=== PATIENT | male | born 1980 | race Caucasian/White ===

== ENCOUNTER 2022-06-28 07:30 | Day surgery (SDC) | payer BC, SELFPAY ==
[2022-06-28] VITALS (10 sets, daily range): BP systolic 91–118; BP diastolic 51–93; PULSE 46–81; RESP 16–18; TEMP 36.2–36.5; O2SAT 94–98; BMI 27.2
[2022-06-28] MEDS: LACTATED RINGERS 1000 ML 1,000 ML 100 ML IV ×2 (08:00→11:49)
[2022-06-28] MEDS: SODIUM CHLORIDE 0.9 % (FLUSH) 10 ML SYRINGE IVF (08:22)
--- NOTE | 2022-06-28 08:22 | SUR.PREOP ---
Home COVID Test negative. Test taken 06/27 per patient.
--- NOTE | 2022-06-28 09:45 | CRLHL7_ITS ---
For Patients: As a result of the Cures Act, medical imaging exams and procedure reports are released immediately into your electronic medical record. You may view this report before your referring provider. If you have questions, please contact your health care provider. Indication: ORIF Right Ankle Technique: Four fluoroscopic images of the right ankle. Fluoroscopic time 77.6 seconds. IMPRESSION: Fluoroscopic guidance for open reduction internal fixation of the distal fibular fracture. Dictated by Armando Cantu MD @ 06/28/2022 12:35:34 PM (Electronically Signed)
[2022-06-28] MEDS: fentaNYL 100 MCG/2 ML inj IVP (10:34)
[2022-06-28] MEDS: MIDAZOLAM HCL 1 MG/ML inj IVP (10:34)
--- NOTE | 2022-06-28 10:39 | W.PM.NB ---
Nerve Block Nerve Block Time Seen by Provider: 10:35 Date Seen: 06/28/22 Type of block requested by surgeon for post-operative analgesia: popliteal Side: right Time out performed: Yes Verification of patient name: Yes Verification of date of : Yes Site marking: site marked Name of person performing procedure: Ruben Continuous monitoring Was continuous monitoring of O2 sat, B/P, monitoring and evaluation advisor, recorded every 15 minutes?: Yes Procedure Checklist: sterile prep, needles and gloves Ultrasound guided. Images saved: Yes Medications given in 5ml increments after negative aspiration: Ropivicaine %: 0.5 mL: 25 Needle gauge: 22 Patient tolerated procedure well: Yes Additional comments: Needle noted adjacent to nerve Block Charges Block Charge (with Pro Fee): Sciatic Nerve Use of Ultrasound Machine for Block: Yes- US Guidance/pain block
--- NOTE | 2022-06-28 10:40 | W.PM.NB ---
Nerve Block Nerve Block Time Seen by Provider: 10:35 Date Seen: 06/28/22 Type of block requested by surgeon for post-operative analgesia: adductor canal Side: right Time out performed: Yes Verification of patient name: Yes Verification of date of : Yes Site marking: site marked Name of person performing procedure: Ruben Continuous monitoring Was continuous monitoring of O2 sat, B/P, associate professor computer science, recorded every 15 minutes?: Yes Procedure Checklist: sterile prep, needles and gloves Ultrasound guided. Images saved: Yes Medications given in 5ml increments after negative aspiration: Ropivicaine %: 0.5 mL: 20 Needle gauge: 20 Patient tolerated procedure well: Yes Additional comments: Needle noted adjacent to nerve Block Charges Block Charge (with Pro Fee): Femoral Nerve Use of Ultrasound Machine for Block: Yes- US Guidance/pain block
--- NOTE | 2022-06-28 11:37 | W.ANESCHARGE ---
Anesthesia Charges Start Date/Time Anesthesia Start Date: 06/28/22 Anesthesia Start Time: 11:01 Stop Date/Time Anesthesia Stop Date: 06/28/22 Anesthesia Stop Time: 12:40 Summary Emergency: No
--- NOTE | 2022-06-28 12:40 | W.ANESCHARGE ---
Anesthesia Charges Start Date/Time Anesthesia Start Date: 06/28/22 Anesthesia Start Time: 11:01 Stop Date/Time Anesthesia Stop Date: 06/28/22 Anesthesia Stop Time: 12:40 Summary Emergency: No
--- NOTE | 2022-06-28 14:05 | P.ORPRC_ITS ---
Procedure Note Date of procedure: 06/28/22 Procedure: PREOPERATIVE DIAGNOSES: 1. Right ankle lateral malleolar fracture, closed, acute (bimalleolar equivalent based on gravity stress radiograph) POSTOPERATIVE DIAGNOSES: 1. Right ankle lateral malleolar fracture, closed, acute (bimalleolar equivalent based on gravity stress radiograph) NAME OF OPERATION: 1. Right ankle lateral malleolus open reduction with internal fixation 2. 36244 - intraoperative fluoroscopy up to 1 hour. SURGEON: Joey Minaya MD MEDICAL FILE CLERK: Ayan Alfredo PA-C; Of note, an physical therapy assistant instructor was critical for this case to aide in patient positioning, leg manipulation, tissue retraction, closure, & splinting. ANESTHESIA: Regional block plus MAC anesthetic. EBL: 20 mL IMPLANTS: Arthrex fibulock 3.0 mm distal fibular intramedullary nail with 3.0 mm cortical nonlocking screws distally (total of 2 screws) and an end cap. TOURNIQUET: None INDICATIONS: The patient is a pleasant 42-year-old male who sustained a right ankle injury in the recent past with difficulty bearing weight. Workup included xrays which revealed an unstable ankle fracture as noted above. Given these findings, surgery was recommended to stablize the ankle. FINDINGS: Closed, Greer B, displaced lateral malleolus fractures with good bone quality. There was edematous tissue throughout the ankle which was moderate. PROCEDURE: Following a thorough discussion of risks, benefits, and alternatives, consent was obtained and the right ankle was marked. The patient was brought to the operating room and placed supine on the operating table. Induction of anesthesia was undertaken. Appropriate time out was performed identifying proper patient, site and procedure. 2 g IV Ancef was administered within 1 hour of incision preoperatively. The right lower extremity was prepped and draped in the appropriate sterile fashion using ChloraPrep. The limb was exsanguinated and the tourniquet inflated. Initially, a lateral x-ray helped us with the general alignment of where the guide pin would track. This was drawn on the skin for future reference. We then entered the distal fibula with a guide pin at the fibular tip according to the technique guide. It was passed into the fibula and after confirming on both AP and lateral fluoroscopic images, it was found to pass up the fibula approximately 130+ mm. The fracture was held reduced with clamp throughout the reaming to maintain its reduced position. The distal portion of the fibula was then reamed with the opening Reamer, followed by the 3.2 mm Reamer up the fibular diaphysis. The canal was very tight, and thus we progressed slowly and in the toggle fashion so as not to break through the fibula. After proper reaming, the nail was placed. The proximal fins were engaged with the torque limiting screwdriver. Distal interlocking screws were then placed from lateral to medial being cautious not to allow them to penetrate the medial fibular cortex. These had excellent purchase and were necessary given her frail bone quality. Finally, the end cap was placed and confirmed on AP and lateral views to be in appropriate position. After confirming appropriate reduction/positioning on C-arm fluoroscopic imaging, the ankle was tested for syndesmosis stability. External rotation was performed. Indeed it remained stable. No widening of the mortise was appreciated. At this stage, the wound was thoroughly irrigated with normal saline. Closure was performed with 3-0 / 4-0 Vicryl and monocryl, respectively for subcutaneous and subcuticular closure. Dressings were applied and a sugar- tong splint was applied. The patient was awoken from anesthesia and transferred to the PACU in stable condition. PLAN: 1. Elevate operative extremity. 2. Encouraged ice. 3. Percocet for pain as needed. 4. Follow up with PA visit in 2-3 weeks for wound check and splint removal. Transition to CAM boot. Advance weight-bearing slowly over the next 1-2 weeks as tolerated 5. Toe-touch weight-bearing operative lower extremity
--- NOTE | 2022-06-28 15:02 | SUR.PREOP ---
TIME?OUT:?1032 PT/RN/MDA?VERIFICATION?OF?SURGICAL?SITE,?PROCEDURE,?AND?CONSENT OBTAINED?PRIOR?TO?INVASIVE?PROCEDURE.
--- NOTE | 2022-06-28 15:04 | SUR.PREOP ---
1040: Vital signs were within normal limits during block procedure.
== END 2022-06-28 14:06 | disposition home or self-care (01) ==
PROVIDERS: Visit Provider Orthopaedic Surgery Sports Medicine
PROC: (CPT 27792; principal; 2022-06-28 09:45)
DX: S82.61XA Displaced fracture of lateral malleolus of right fibula, initial encounter for closed fracture (principal)
CPT/HCPCS: 27792; 01462; 01480; 64445; 64447; 73600; 76000; 76942; C1713; J1100; J2250; J2405; J2704; J2795; J3010; J7120